=== PATIENT | male | born 1965 | race African-American/Black ===

== ENCOUNTER 2016-12-11 13:26 | Observation (INO) | payer SELFPAY ==
[~2016-12-11] VITALS: Ht 172.7 cm; Wt 120.0 kg
[~2016-12-11 13:26] MED LIST: LISI-363 PO; PRED20 PO
[2016-12-11 13:28] VITALS: BP 175/103; PULSE 85; RESP 16; TEMP 98.3; O2SAT 95
--- NOTE | 2016-12-11 16:19 | PD ---
HPI Chief Complaint: Dizziness Time Seen by Provider: 16:18 Travel History International Travel<30 days: No Contact w/Intl Traveler<30days: No Traveled to known affect area: No History of Present Illness HPI 51-year-old male came to the emergency room with history of lightheadedness today at around 1 PM when he was driving to work. Patient says he had his air conditioner on and the car but felt lightheaded followed by some sweating and right upper extremity pain. He felt like he was going to have a fever. Patient has had vertigo in the past but what he experienced today was different than his previous vertigo symptoms. Sent him and he came to the emergency room. He says as he was sitting in the waiting room his symptoms disappeared. He ate some breakfast in the morning but did not eat any lunch. Since he was getting ready to go to work. No history of vomiting or diarrhea. Patient has obesity and has history of hypertension. PFSH Past Medical History Narrative Medical List of his past medical, surgical, social and family history was reviewed from the nursing note. Arthritis: No Asthma: No Autoimmune Disease: No Blood Disorders: No Depression: No Heart Rhythm Problems: No Cancer: No Cardiovascular Problems: Yes (HTN) High Cholesterol: No Chemotherapy: No Chest Pain: Yes Congestive Heart Failure: No COPD: No Cerebrovascular Accident: No Diminished Hearing: No Endocrine: No GERD: No Glaucoma: No Genitourinary: No Headaches: No Hepatitis: No Hiatal Hernia: No Hypertension: Yes Immune Disorder: No Kidney Stones: No Musculoskeletal: No Psychiatric: No Respiratory: Yes Myocardial Infarction: No Pneumonia: Yes Radiation Therapy: No Renal Failure: No Seizures: No Sickle Cell Disease: No Sleep Apnea: No Thyroid Disease: No Ulcer: No Past Surgical History Abdominal Surgery: No AICD: No Cardiac Surgery: No Ear Surgery: No Endocrine Surgery: No Eye Surgery: No Genitourinary Surgery: No Gynecologic Surgery: No Joint Replacement: No Neurologic Surgery: No Oral Surgery: No Pacemaker: No Thoracic Surgery: No Other Surgery: No Social History Alcohol Use: Yes (social) Tobacco Use: No Substance Use: Yes (MARIJUANA) Allergies-Medications (Allergen,Severity, Reaction): Coded Allergies: No Known Allergies (Verified , 01/19/16) Comments List of his allergies reviewed from the nursing note Reported Meds & Prescriptions Reported Meds & Active Scripts Active Reported Lisinopril 20 Mg Tab 20 Mg PO DAILY Narrative Medication List of his home medications reviewed from the nursing note. Review of Systems Except as stated in HPI: all other systems reviewed are Neg Physical Exam Narrative GENERAL: Awake, alert, obese, no obvious distress SKIN: Focused skin assessment warm/dry. HEAD: Atraumatic. Normocephalic. EYES: Pupils equal and round. No scleral icterus. No injection or drainage. 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 Mucous membranes pink and moist. NECK: Trachea midline. No JVD. CARDIOVASCULAR: Regular rate and rhythm. No murmur appreciated. RESPIRATORY: No accessory muscle use. Clear to auscultation. Breath sounds equal bilaterally. GASTROINTESTINAL: Abdomen soft, non-tender, nondistended. Hepatic and splenic margins not palpable. MUSCULOSKELETAL: No obvious deformities. No clubbing. No cyanosis. No edema. NEUROLOGICAL: Awake and alert. No obvious cranial nerve deficits. Motor grossly within normal limits. Normal speech. PSYCHIATRIC: Appropriate mood and affect; insight and judgment normal. Data Data Last Documented VS Vital Signs Date Time Temp Pulse Resp B/P Pulse Ox O2 Delivery O2 Flow Rate FiO2 12/11/16 16:47 100 Room Air 12/11/16 16:35 59 145/88 61 153/92 66 157/92 12/11/16 13:28 98.3 16 Orders Electrocardiogram (12/11/16 16:26) Complete Blood Count With Diff (12/11/16 16:26) Basic Metabolic Panel (Bmp) (12/11/16 16:26) Troponin I (12/11/16 16:26) Ct Brain W/O Iv Contrast(Rout) (12/11/16 16:26) Ecg Monitoring (12/11/16 16:26) Iv Access Insert/Monitor (12/11/16 16:26) Oximetry (12/11/16 16:26) Sodium Chloride 0.9% Flush (Ns Flush) (12/11/16 16:30) Orthostatic Vital Signs (12/11/16 16:26) Admit Order (Ed Use Only) (12/11/16 20:19) Labs Laboratory Tests Test 12/11/16 12/11/16 17:30 18:50 White Blood Count 8.8 TH/MM3 Red Blood Count 5.04 MIL/MM3 Hemoglobin 14.0 GM/DL Hematocrit 42.2 % Mean Corpuscular Volume 83.6 FL Mean Corpuscular Hemoglobin 27.8 PG Mean Corpuscular Hemoglobin 33.3 % Concent Red Cell Distribution Width 13.5 % Platelet Count 228 TH/MM3 Mean Platelet Volume 7.7 FL Neutrophils (%) (Auto) 64.5 % Lymphocytes (%) (Auto) 25.6 % Monocytes (%) (Auto) 5.4 % Eosinophils (%) (Auto) 2.3 % Basophils (%) (Auto) 2.2 % Neutrophils # (Auto) 5.7 TH/MM3 Lymphocytes # (Auto) 2.3 TH/MM3 Monocytes # (Auto) 0.5 TH/MM3 Eosinophils # (Auto) 0.2 TH/MM3 Basophils # (Auto) 0.2 TH/MM3 CBC Comment DIFF FINAL Differential Comment Sodium Level 136 MEQ/L Potassium Level 5.1 MEQ/L Chloride Level 103 MEQ/L Carbon Dioxide Level 30.3 MEQ/L Anion Gap 3 MEQ/L Blood Urea Nitrogen 13 MG/DL Creatinine 1.03 MG/DL Estimat Glomerular Filtration 92 ML/MIN Rate Random Glucose 80 MG/DL Calcium Level 9.1 MG/DL Troponin I 0.02 NG/ML MDM Medical Decision Making Medical Screen Exam Complete: Yes Emergency Medical Condition: Yes Medical Record Reviewed: Yes Interpretation(s) Twelve-lead EKG was reviewed by me. Normal sinus rhythm, normal axis, nonspecific ST-T wave changes. Heart rate of 62 bpm. Differential Diagnosis TIA, intracranial bleed, intracranial tumor Narrative Course 4:51 PM orthostatic vital signs were done. There were within normal limit. I have ordered cardiac enzyme and blood work and CT head. Given his age and the feet presentation I would like to admit him to the chest pain center regardless. Patient will be signed over to the oncoming ER physician and I let her know about my plan. Procedures EKG Prior to Arrival: No Diagnosis Primary Impression: Dizziness Additional Impressions: Hypertension Qualified Code: I10 - Essential hypertension Paresthesia Chest pain Qualified Code: R07.9 - Chest pain, unspecified type Admitting Information Admitting Physician Requests: Observation Anjel Inman MD Dec 11, 2016 16:19
[2016-12-11] MEDS ORDERED: LISI-515 PO (16:23)
[2016-12-11] MEDS ORDERED: SODIUM CHLORIDE 0.9% FLUSH 10 ML FLUSH IVF PRN (16:30)
[2016-12-11 16:35] VITALS: BP_SYST 145; BP_SYST 153; BP_SYST 157; BP_DIAS 88; BP_DIAS 92
[2016-12-11 16:47] VITALS: O2SAT 100
--- NOTE | 2016-12-11 17:22 | RADRPT ---
EXAM DATE/TIME: 12/11/2016 17:13 [facility] COMPARISON: CT BRAIN W/O CONTRAST, January 08, 2016, 23:39. INDICATIONS : Dizziness. Right sided head pain, elevated blood pressure. RADIATION DOSE: 41.45 CTDIvol (mGy) MEDICAL HISTORY : Hypertension. SURGICAL HISTORY : None. ENCOUNTER: Initial ACUITY: 1 day PAIN SCALE: 3/10 LOCATION: Right cranial TECHNIQUE: Multiple contiguous axial images were obtained of the head. Using automated exposure control and adj ustment of the mA and/or kV according to patient size, radiation dose was kept as low as reasonably a chievable to obtain optimal diagnostic quality images. DICOM format image data is available electro nically for review and comparison. FINDINGS: CEREBRUM: The ventricles are normal for age. No evidence of midline shift, mass lesion, hemorrhage or acute in farction. No extra-axial fluid collections are seen. POSTERIOR FOSSA: The cerebellum and brainstem are intact. The 4th ventricle is midline. The cerebellopontine angle i s unremarkable. EXTRACRANIAL: The visualized portion of the orbits is intact. SKULL: The calvaria is intact. No evidence of skull fracture. CONCLUSION: No acute intracranial abnormality is identified. Bin Quick MD on December 11, 2016 at 17:19 Board Certified Radiologist. This report was verified electronically.
[2016-12-11 18:12] LABS: AUTOMATED NEUTROPHIL # 5.7 TH/MM3 (1.8-7.7); BASOPHIL # 0.2 TH/MM3 (0-0.2); BASOPHIL % 2.2 % (0.0-2.0); EOSINOPHIL # 0.2 TH/MM3 (0-0.4); EOSINOPHIL % 2.3 % (0.0-4.0); HEMATOCRIT 42.2 % (39.0-51.0); HEMO FLAGS DIFF FINAL; LYMPH % 25.6 % (9.0-44.0); LYMPHOCYTE # 2.3 TH/MM3 (1.0-4.8); MEAN CELL VOLUME 83.6 FL (80.0-100.0); MEAN CORPUSCULAR HEMOGLOBIN 27.8 PG (27.0-34.0); MEAN CORPUSCULAR HGB CONC 33.3 % (32.0-36.0); MONO % 5.4 % (0.0-8.0); NEUT % 64.5 % (16.0-70.0); PLATELET COUNT 228 TH/MM3 (150-450); RED BLOOD COUNT 5.04 MIL/MM3 (4.50-5.90); RED CELL DISTRIBUTION WIDTH 13.5 % (11.6-17.2); WHITE BLOOD COUNT 8.8 TH/MM3 (4.0-11.0)
[2016-12-11 19:55] LABS: BICARBONATE 30.3 MEQ/L (21.0-32.0)
[2016-12-11 20:00] LABS: POTASSIUM 5.1 MEQ/L (3.5-5.1)
--- NOTE | 2016-12-11 20:26 | PD ---
Physical Exam Narrative Received sign out from previous team to follow up labs, CT brain and admit to chest pain center. 51yo M with HTN here with c/o episode of nausea, diaphoresis, and right arm pain today. Pt was evaluated initially by previous provider and felt that this may be cardiac related. Labs reviewed, no leukocytosis. Troponin 0.02. CT brain negative. Pt evaluated at bedside and denies any chest pain or sob. Pt currently does not have any right arm pain. EKG: NSR 63bpm. No signs of ischemia. Pt states this has never happen before. Does not have a cone former. Informed pt of the plan and he agrees with observation in chest pain center. Data Data Last Documented VS Vital Signs Date Time Temp Pulse Resp B/P Pulse Ox O2 Delivery O2 Flow Rate FiO2 12/11/16 16:47 100 Room Air 12/11/16 16:35 59 145/88 61 153/92 66 157/92 12/11/16 13:28 98.3 16 Orders Electrocardiogram (12/11/16 16:26) Complete Blood Count With Diff (12/11/16 16:26) Basic Metabolic Panel (Bmp) (12/11/16 16:26) Troponin I (12/11/16 16:26) Ct Brain W/O Iv Contrast(Rout) (12/11/16 16:26) Ecg Monitoring (12/11/16 16:26) Iv Access Insert/Monitor (12/11/16 16:26) Oximetry (12/11/16 16:26) Sodium Chloride 0.9% Flush (Ns Flush) (12/11/16 16:30) Orthostatic Vital Signs (12/11/16 16:26) Admit Order (Ed Use Only) (12/11/16 20:19) Labs Laboratory Tests Test 12/11/16 12/11/16 17:30 18:50 White Blood Count 8.8 TH/MM3 Red Blood Count 5.04 MIL/MM3 Hemoglobin 14.0 GM/DL Hematocrit 42.2 % Mean Corpuscular Volume 83.6 FL Mean Corpuscular Hemoglobin 27.8 PG Mean Corpuscular Hemoglobin 33.3 % Concent Red Cell Distribution Width 13.5 % Platelet Count 228 TH/MM3 Mean Platelet Volume 7.7 FL Neutrophils (%) (Auto) 64.5 % Lymphocytes (%) (Auto) 25.6 % Monocytes (%) (Auto) 5.4 % Eosinophils (%) (Auto) 2.3 % Basophils (%) (Auto) 2.2 % Neutrophils # (Auto) 5.7 TH/MM3 Lymphocytes # (Auto) 2.3 TH/MM3 Monocytes # (Auto) 0.5 TH/MM3 Eosinophils # (Auto) 0.2 TH/MM3 Basophils # (Auto) 0.2 TH/MM3 CBC Comment DIFF FINAL Differential Comment Sodium Level 136 MEQ/L Potassium Level 5.1 MEQ/L Chloride Level 103 MEQ/L Carbon Dioxide Level 30.3 MEQ/L Anion Gap 3 MEQ/L Blood Urea Nitrogen 13 MG/DL Creatinine 1.03 MG/DL Estimat Glomerular Filtration 92 ML/MIN Rate Random Glucose 80 MG/DL Calcium Level 9.1 MG/DL Troponin I 0.02 NG/ML MDM Supervised Visit with VEE: No Diagnosis Primary Impression: Dizziness Admitting Information Admitting Physician Requests: Observation Zenaida Avila DO Dec 11, 2016 20:26
[2016-12-11] MEDS ORDERED: SODIUM CHLORIDE 0.9% FLUSH 10 ML FLUSH IV FLUSH PRN (21:15)
[2016-12-11 21:52] VITALS: BP 153/78; PULSE 62; RESP 16; O2SAT 98
[2016-12-11 22:25] VITALS: BP_SYST 160; BP_SYST 168; BP_DIAS 94; BP_DIAS 97; PULSE 60; RESP 18; TEMP 98.8; O2SAT 100
[2016-12-11 23:12] LABS: CREATINE KINASE 167 U/L (39-308)
[2016-12-11 23:24] LABS: CKMB 1.5 NG/ML (0.5-3.6)
[2016-12-12] VITALS (8 sets, daily range): BP systolic 114–146; BP diastolic 79–96; PULSE 60–76; RESP 18; TEMP 97.9–98.5; O2SAT 100
[2016-12-12 01:37] LABS: CREATINE KINASE 110 U/L (39-308)
[2016-12-12 01:49] LABS: CKMB 1.2 NG/ML (0.5-3.6)
--- NOTE | 2016-12-12 08:39 | HHI.HP ---
HPI Primary Care Physician No Primary Care Physician Chief Complaint Mr. Booth is a 51-year-old male patient with a known medical history of hypertension, vertigo and chronic back pain who came into the ED with complaints of right upper arm numbness and pain with associated dizziness and diaphoresis while driving to work. Patient states he has never experienced this type of pain in his arm, started suddenly, intermittent and characteristically sharp in nature, and a 5/10 on pain scale. Denies any alleviating or aggravating factors. Denies any associated chest or neck pain. Does state he has bouts of vertigo intermittently but yesterday he states along with his usual vertigo he became extremely diaphoretic despite using the air conditioner in his car. At this time all symptoms and pain are relived. Denies any recent illness, including fever, chills, cough, shortness of breath, abdominal pain, nausea, vomiting, diarrhea or dysuria. Patient does not have a PCP but visits walk in clinics a couple times a year. States he checks his BP periodically at [facility] and has been controlled. Past Family Social History Allergies: Coded Allergies: No Known Allergies (Verified , 01/19/16) Past Medical History Hypertension Vertigo Chronic back pain Past Surgical History Denies any past surgeries. Reported Medications Reported Meds & Active Scripts Active Reported Lisinopril 20 Mg Tab 20 Mg PO DAILY Active Ordered Medications Current Medications Medications (Trade) Dose Ordered Sig/Jes Route Start Time Stop Time Status Last Admin (NS Flush) 2 ml UNSCH PRN IVF 12/11/16 16:30 (NS Flush) 2 ml UNSCH PRN IV FLUSH 12/11/16 21:15 (NS Flush) 2 ml BID IV FLUSH 12/12/16 09:00 Family History Maternal family medical history includes diabetes. Patient unaware of paternal medical history. Social History Patient denies any past or present tobacco use. Admits to occasional alcohol consumption. Does admit to every other day marijuana use. Physical Exam Vital Signs Vital Signs Date Time Temp Pulse Resp B/P Pulse Ox O2 Delivery O2 Flow Rate FiO2 12/12/16 07:48 98.0 76 18 123/79 100 12/12/16 05:17 60 12/12/16 03:28 97.9 61 18 135/96 100 12/12/16 00:44 98.1 65 18 146/86 100 12/12/16 00:00 65 12/11/16 22:25 98.8 60 18 168/97 100 160/94 12/11/16 21:52 62 16 153/78 98 Room Air 12/11/16 16:47 100 Room Air 12/11/16 16:35 59 145/88 61 153/92 66 157/92 12/11/16 13:28 98.3 85 16 175/103 95 Physical Exam GENERAL: Well-developed male patient, lying in bed in no apparent distress. SKIN: Warm and dry. HEAD: Atraumatic. Normocephalic. EYES: Pupils equal and round. No scleral icterus. No injection or drainage. ENT: No nasal bleeding or discharge. Mucous membranes pink and moist. NECK: Trachea midline. No JVD. CARDIOVASCULAR: Regular rate and rhythm. No murmur appreciated. RESPIRATORY: No accessory muscle use. Clear to auscultation. Breath sounds equal bilaterally. GASTROINTESTINAL: Abdomen soft, non-tender, nondistended. Hepatic and splenic margins not palpable. MUSCULOSKELETAL: Extremities without clubbing, cyanosis, or edema. No obvious deformities. NEUROLOGICAL: Awake and alert. No obvious cranial nerve deficits. Motor grossly within normal limits. Five out of 5 muscle strength in the arms and legs. Normal speech. PSYCHIATRIC: Appropriate mood and affect; insight and judgment normal. Laboratory Laboratory Tests Test 12/11/16 12/11/16 12/11/16 12/12/16 17:30 18:50 21:50 00:12 White Blood Count 8.8 Red Blood Count 5.04 Hemoglobin 14.0 Hematocrit 42.2 Mean Corpuscular Volume 83.6 Mean Corpuscular Hemoglobin 27.8 Mean Corpuscular Hemoglobin 33.3 Concent Red Cell Distribution Width 13.5 Platelet Count 228 Mean Platelet Volume 7.7 Neutrophils (%) (Auto) 64.5 Lymphocytes (%) (Auto) 25.6 Monocytes (%) (Auto) 5.4 Eosinophils (%) (Auto) 2.3 Basophils (%) (Auto) 2.2 Neutrophils # (Auto) 5.7 Lymphocytes # (Auto) 2.3 Monocytes # (Auto) 0.5 Eosinophils # (Auto) 0.2 Basophils # (Auto) 0.2 CBC Comment DIFF FINAL Differential Comment Sodium Level 136 Potassium Level 5.1 Chloride Level 103 Carbon Dioxide Level 30.3 Anion Gap 3 Blood Urea Nitrogen 13 Creatinine 1.03 Estimat Glomerular Filtration 92 Rate Random Glucose 80 Calcium Level 9.1 Troponin I 0.02 0.02 0.03 Total Creatine Kinase 167 110 Creatine Kinase MB 1.5 1.2 Result Diagram: 12/11/16 1730 12/11/16 1850 Imaging Last [address] 12/11/16 1626 Signed Impressions: Service Date/Time: Sunday, December 11, 2016 17:13 - CONCLUSION: No acute intracranial abnormality is identified. Bin Quick MD Assessment and Plan Assessment and Plan Mr. Booth is a 51-year-old male patient with a known medical history of hypertension, vertigo and chronic back pain who came into the ED with complaints of right upper arm numbness and pain with associated dizziness and diaphoresis while driving to work. Patient states he has never experienced this type of pain in his arm, started suddenly, intermittent and characteristically sharp in nature, and a 5/10 on pain scale. Denies any alleviating or aggravating factors. Denies any associated chest or neck pain. Does state he has bouts of vertigo intermittently but yesterday he states along with his usual vertigo he became extremely diaphoretic despite using the air conditioner in his car. * Paresthesias right arm: Patient was admitted to chest pain center to evaluate possible cardiac etiology. He'll be seen by Dr. Campo of cardiology in the chest pain center and likely undergo a Bob protocol ETT and be discharged stress test is nonischemic. He should follow-up with primary care physician. - Serial troponins normal. CKMB normal. - EKG reviewed by nd, showing sinus rhythm with no abnormality or athymias. - Continue tele monitor. Hypertension: Continue at home Lisinopril. On presentation patient was hypertensive, currently controlled, 123/79. Vertigo, chronic: CT head reviewed, no acute intracranial abnormality noted. BMP reviewed, unremarkable. Denies current dizziness. Monitor. Jean Hardy Dec 12, 2016 08:39
[2016-12-12] MEDS ORDERED: SODIUM CHLORIDE 0.9% FLUSH 10 ML FLUSH IV FLUSH SCH (09:00)
[2016-12-12] MEDS ORDERED: LISINOPRIL 20 MG TAB PO SCH (09:30)
--- NOTE | 2016-12-12 12:18 | TR ---
Date Performed: 12/12/2016 Time Performed: 09:55:42 DOCTOR: Mau Campo DRUG LIST: CLINICAL HISTORY: REASON FOR TEST: Chest pain REASON FOR ENDING: OBSERVATION: CONCLUSION: DENISHA PROTOCOL. NO CP. TEST STOPPED AFTER EXCEEDING GOAL HR SECONDARY TO SOB AND LE G FATIGUE.Maximum LQ=206 % Max HR Achieved=92.0% Maximum PZ=352/82 Total Exercise Time=4:31 COMMENTS: Conclusion: Normal treadmill exercise. No evidence of ischemia.
--- NOTE | 2016-12-12 12:33 | HHI.DCPOC ---
Discharge Care Plan Diagnosis: (1) Paresthesia (2) Hypertension Goals to Promote Your Health * To prevent worsening of your condition and complications * To maintain your health at the optimal level Directions to Meet Your Goals Take your medications as prescribed Follow your dietary instruction Follow activity as directed Keep your appointments as scheduled Take your immunizations and boosters as scheduled If your symptoms worsen call your PCP, if no PCP go to Urgent Care Center or Emergency Room Smoking is Dangerous to Your Health. Avoid second hand smoke Call the 24-hour hour crisis hotline for domestic abuse at Jean Hardy Dec 12, 2016 12:32
[2016-12-12 13:53] LABS: BICARBONATE 26.2 MEQ/L (21.0-32.0); POTASSIUM 4.3 MEQ/L (3.5-5.1)
--- NOTE | 2016-12-12 15:13 | EKG ---
Date Performed: 12/12/2016 Time Performed: 00:48:18 PTAGE: 51 years EKG: Sinus rhythm NORMAL ECG PREVIOUS TRACING : 12/11/2016 16.33 Since previous tracing, no significant change noted DOCTOR: Mau Campo Interpretating Date/Time 12/12/2016 15:12:42
--- NOTE | 2016-12-12 15:25 | EKG ---
Date Performed: 12/11/2016 Time Performed: 21:47:34 PTAGE: 51 years EKG: Sinus rhythm NORMAL ECG NO PREVIOUS TRACING DOCTOR: Mau Campo Interpretating Date/Time 12/12/2016 15:23:56
--- NOTE | 2016-12-12 15:27 | EKG ---
Date Performed: 12/11/2016 Time Performed: 16:33:20 PTAGE: 51 years EKG: Sinus rhythm WITH SINUS ARRHYTHMIA NORMAL ECG PREVIOUS TRACING : 01/19/2016 19.58 Since previous tracing, no significant change noted DOCTOR: Mau Campo Interpretating Date/Time 12/12/2016 15:26:17
== END 2016-12-12 14:35 | disposition home or self-care (01) ==
LOC: NEPD 13:26 → NEDA 20:20 → NEPGCP 22:18
PROVIDERS: ADMIT Internal Medicine Cardiovascular Disease; ATTEND Internal Medicine Cardiovascular Disease
DX: R20.9 Unspecified disturbances of skin sensation (principal); R42 Dizziness and giddiness; I10 Essential (primary) hypertension; R61 Generalized hyperhidrosis; E66.9 Obesity, unspecified; Z68.41 Body mass index [BMI] 40.0-44.9, adult; Z79.899 Other long term (current) drug therapy
CPT/HCPCS: 70450; 80048; 82550; 82552; 84484; 85025; 93005; 93017; 99285; G0378

== ENCOUNTER 2016-12-20 13:34 | Emergency (ER) | payer SELFPAY ==
[~2016-12-20] VITALS: Ht 165.1 cm; Wt 106.0 kg
[~2016-12-20 13:34] MED LIST changes: -LISI-363 PO; +LISI-515 PO; -PRED20 PO
[2016-12-20 13:36] VITALS: BP 179/89; PULSE 80; RESP 20; TEMP 97.3; O2SAT 100
[2016-12-20] MEDS ORDERED: LISI40TA PO (14:44)
--- NOTE | 2016-12-20 14:45 | PD ---
HPI Chief Complaint: Musculoskeletal Complaint Time Seen by Provider: 14:39 Travel History International Travel<30 days: No Contact w/Intl Traveler<30days: No Traveled to known affect area: No History of Present Illness HPI Pleasant 51-year-old male here with complaint of spasm. Patient states that he was at home when he had a sudden onset of a muscle spasm in the volar aspect of his right forearm. This lasted for approximately 15 minutes, crampy discomfort. Patient states that it made his fingers "curl up" in the right hand. Patient states that he was recently hospitalized for cardiac rule out, per chart review workup was negative. Patient was hypertensive and is on lisinopril. Has been checking his blood pressure at home and states that despite taking lisinopril 28 is still intermittently elevated. He will occasionally have some blurry vision, patient is concerned this may be due to his high blood pressure. Asymptomatic At this time. PFSH Past Medical History Arthritis: No Asthma: No Autoimmune Disease: No Blood Disorders: No Depression: No Heart Rhythm Problems: No Cancer: No Cardiac Catheterization: No Cardiovascular Problems: Yes High Cholesterol: No Chemotherapy: No Chest Pain: Yes Congestive Heart Failure: No COPD: No Cerebrovascular Accident: No Diabetes: No Diminished Hearing: No Endocrine: No GERD: No Glaucoma: No Genitourinary: No Headaches: No Hepatitis: No Hiatal Hernia: No Hypertension: Yes Immune Disorder: No Kidney Stones: No Musculoskeletal: No Psychiatric: No Respiratory: Yes Myocardial Infarction: No Pneumonia: Yes Radiation Therapy: No Renal Failure: No Seizures: No Sickle Cell Disease: No Sleep Apnea: No Thyroid Disease: No Ulcer: No Past Surgical History Abdominal Surgery: No AICD: No Cardiac Surgery: No Coronary Artery Bypass Graft: No Ear Surgery: No Endocrine Surgery: No Eye Surgery: No Genitourinary Surgery: No Gynecologic Surgery: No Joint Replacement: No Neurologic Surgery: No Oral Surgery: No Pacemaker: No Thoracic Surgery: No Other Surgery: No Social History Alcohol Use: Yes (social) Tobacco Use: No Substance Use: Yes (MARIJUANA) Allergies-Medications (Allergen,Severity, Reaction): Coded Allergies: No Known Allergies (Verified , 01/19/16) Reported Meds & Prescriptions Reported Meds & Active Scripts Active Lisinopril 40 Mg Tab 40 Mg PO DAILY Reported Lisinopril 20 Mg Tab 20 Mg PO DAILY Review of Systems Except as stated in HPI: all other systems reviewed are Neg Physical Exam Narrative GENERAL: Well-appearing male in no acute distress SKIN: Focused skin assessment warm/dry. HEAD: Normocephalic. EYES: No scleral icterus. No injection or drainage. ENT: Mucous membranes pink and moist. NECK: Supple CARDIOVASCULAR: Regular rate and rhythm. Hypertensive. No murmur appreciated. RESPIRATORY: No accessory muscle use. Clear to auscultation. Breath sounds equal bilaterally. GASTROINTESTINAL: Obese MUSCULOSKELETAL: No edema. 5 out of 5 strength in the bilateral upper and lower extremities. No palpable spasm, deformities. Good distal sensation and pulses. NEUROLOGICAL: Awake and alert. Motor grossly within normal limits. Normal speech. PSYCHIATRIC: Appropriate mood and affect; insight and judgment normal. Data Data Last Documented VS Vital Signs Date Time Temp Pulse Resp B/P Pulse Ox O2 Delivery O2 Flow Rate FiO2 12/20/16 13:36 97.3 80 20 179/89 100 Room Air MDM Medical Decision Making Medical Screen Exam Complete: Yes Emergency Medical Condition: Yes Medical Record Reviewed: Yes Differential Diagnosis 51-year-old male here with complaint of muscle spasm. By history patient had a fairly classic focalized spasm of the muscles of the volar aspect of the right forearm. This has since resolved. No history to be concern for dehydration or electrolyte abnormality. Electrolytes obtained 8 days ago were normal. Godinez is hypertensive asymptomatic at this time. Narrative Course With regard to muscle spasm patient was reassured. We will increase his home lisinopril from 20-40 mg daily. Diagnosis Primary Impression: Muscle spasm Additional Impression: Hypertension Qualified Code: I10 - Essential hypertension Referrals: Primary Care Physician 2 weeks Additional Instructions: Increase lisinopril from 20-40 mg daily. Follow-up with primary care provider in 2 weeks as scheduled for blood pressure check. Med/Other Pt SpecificInfo: Prescription(s) given, Existing Med Changed Scripts Lisinopril 40 Mg Tab40 Mg PO DAILY #30 TAB Ref 0 Prov:Emelia Cortez MD 12/20/16 Disposition: 01 DISCHARGE HOME Condition: Stable Emelia Cortez MD Dec 20, 2016 14:45
[2016-12-20 14:48] VITALS: BP 175/100
== END 2016-12-20 14:59 | disposition home or self-care (01) ==
LOC: NEPD 13:34
DX: M62.838 Other muscle spasm (principal); I10 Essential (primary) hypertension; Z79.899 Other long term (current) drug therapy
CPT/HCPCS: 99283

== ENCOUNTER 2017-02-10 14:49 | Emergency (ER) | payer SELFPAY ==
[~2017-02-10 14:49] MED LIST changes: +LISI40TA PO
[2017-02-10 14:51] VITALS: BP 182/103; PULSE 72; RESP 20; TEMP 98.1; O2SAT 100
--- NOTE | 2017-02-10 15:00 | PD ---
Physical Exam Date Seen by Provider: Feb 10, 2017 Time Seen by Provider: 14:58 Narrative 51-year-old white male presents to emergency department with a complaint of dizziness, headache feeling as if he might pass out today. Vital signs reviewed. Awaiting bed placement. Data Data Last Documented VS Vital Signs Date Time Temp Pulse Resp B/P (MAP) Pulse Ox O2 Delivery O2 Flow Rate FiO2 02/10/17 14:51 98.1 72 20 182/103 (129) 100 Room Air [facility] Medical Record Reviewed: No Supervised Visit with VEE: Lev Gonzalez Feb 10, 2017 15:00
[2017-02-10 15:27] VITALS: BP 146/83; PULSE 65; RESP 16; O2SAT 99
[2017-02-10] MEDS ORDERED: MECLIZINE HCL 25 MG TAB PO ONE (15:30)
[2017-02-10] MEDS ORDERED: SODIUM CHLORIDE 0.9% FLUSH 10 ML FLUSH IVF PRN (15:30)
--- NOTE | 2017-02-10 15:55 | PD ---
Data Data Last Documented VS Vital Signs Date Time Temp Pulse Resp B/P (MAP) Pulse Ox O2 Delivery O2 Flow Rate FiO2 02/10/17 15:27 Room Air 02/10/17 15:27 65 16 146/83 (104) 99 02/10/17 14:51 98.1 Orders Orders Electrocardiogram (02/10/17 15:00) Complete Blood Count With Diff (02/10/17 15:22) Comprehensive Metabolic Panel (02/10/17:22) Ckmb (Isoenzyme) Profile (02/10/17:) Troponin I (02/10/17:) Ecg Monitoring (02/10/17:22) Iv Access Insert/Monitor (02/10/17:) Oximetry (02/10/17:) Meclizine (Antivert) (02/10/17 15:30) Sodium Chloride 0.9% Flush (Ns Flush) (02/10/17 15:30) Labs Laboratory Tests Test 02/10/17 15:40 MDM Supervised Visit with VEE: Yes Narrative Course The history, exam, and medical decision-making in the associated midlevel provider note were completed with my assistance. I reviewed and agree with the findings presented. I attest that I had a [id number] encounter with the patient on the same day, and personally performed and documented my assessment and findings in the medical record. *My assessment and Findings: This is a 51-year-old male who has a history of dizziness and vertigo who presents to the emergency department with some sensation of the room spinning this morning, intermittent, and having checked his blood pressure at home and it was high in the 160s. He just ran out of his lisinopril. He has a follow-up with a primary care doctor later this month. He has normal gross neurologic exam. I suspect the reason he is here is because he wants a refill on his lisinopril. This will be provided and patient was given meclizine and will be discharged home. I don't think he requires any further diagnostics as he's been seen here for similar symptoms in the past. Carrie Cervantes MD Feb 10, 2017 15:55
--- NOTE | 2017-02-10 15:57 | PD ---
HPI Chief Complaint: Dizziness Time Seen by Provider: 15:11 Travel History International Travel<30 days: No Contact w/Intl Traveler<30days: No Traveled to known affect area: No History of Present Illness HPI Patient is a 51-year-old male presenting to the emergency department due to dizziness and headache. Patient face that headache and dizziness started last night, it resolved itself. He woke up this morning again with dizziness which was worse with head movement. He denies chest pain, shortness of breath. He reports similar headache in the past. Patient has a history of hypertension, he feels that when his blood pressure is elevated he is dizzy. He has no other complaints at this time. PFSH Past Medical History Arthritis: No Asthma: No Autoimmune Disease: No Blood Disorders: No Depression: No Heart Rhythm Problems: No Cancer: No Cardiac Catheterization: No Cardiovascular Problems: Yes High Cholesterol: No Chemotherapy: No Chest Pain: Yes Congestive Heart Failure: No COPD: No Cerebrovascular Accident: No Diabetes: No Diminished Hearing: No Endocrine: No GERD: No Glaucoma: No Genitourinary: No Headaches: No Hepatitis: No Hiatal Hernia: No Hypertension: Yes Immune Disorder: No Kidney Stones: No Musculoskeletal: No Psychiatric: No Respiratory: Yes Immunizations Current: Yes Myocardial Infarction: No Pneumonia: Yes Radiation Therapy: No Renal Failure: No Seizures: No Sickle Cell Disease: No Sleep Apnea: No Thyroid Disease: No Ulcer: No Past Surgical History Surgical History: No Previous Surgery Abdominal Surgery: No AICD: No Cardiac Surgery: No Coronary Artery Bypass Graft: No Ear Surgery: No Endocrine Surgery: No Eye Surgery: No Genitourinary Surgery: No Gynecologic Surgery: No Joint Replacement: No Neurologic Surgery: No Oral Surgery: No Pacemaker: No Thoracic Surgery: No Other Surgery: No Social History Alcohol Use: Yes (social) Tobacco Use: No Substance Use: Yes (MARIJUANA) Allergies-Medications (Allergen,Severity, Reaction): Coded Allergies: No Known Allergies (Verified , 02/10/17) Reported Meds & Prescriptions Reported Meds & Active Scripts Active Lisinopril 40 Mg Tab 40 Mg PO DAILY Meclizine (Meclizine HCl) 25 Mg Tab 25 Mg PO TID PRN Lisinopril 40 Mg Tab 40 Mg PO DAILY Review of Systems Except as stated in HPI: all other systems reviewed are Neg General / Constitutional: No: Fever Eyes: No: Blurred Vision HENT: Positive: Headaches Cardiovascular: No: Chest Pain or Discomfort Respiratory: No: Shortness of Breath Gastrointestinal: No: Nausea, Abdominal Pain Musculoskeletal: No: Myalgias Neurologic: Positive: Dizziness Physical Exam Narrative GENERAL: Overweight, well-developed, alert male. Resting comfortably in no acute distress. SKIN: Warm and dry. HEAD: Atraumatic. Normocephalic. EYES: Pupils equal and round. No scleral icterus. No injection or drainage. Right eye exotropia ENT: No nasal bleeding or discharge. Mucous membranes pink and moist. NECK: Trachea midline. No JVD. CARDIOVASCULAR: Regular rate and rhythm. RESPIRATORY: No accessory muscle use. Clear to auscultation. Breath sounds equal bilaterally. GASTROINTESTINAL: Abdomen soft, non-tender, nondistended. Hepatic and splenic margins not palpable. MUSCULOSKELETAL: Extremities without clubbing, cyanosis, or edema. No obvious deformities. NEUROLOGICAL: Awake and alert. No obvious cranial nerve deficits. Motor grossly within normal limits. Five out of 5 muscle strength in the arms and legs. Normal speech. PSYCHIATRIC: Appropriate mood and affect; insight and judgment normal. Data Data Last Documented VS Vital Signs Date Time Temp Pulse Resp B/P (MAP) Pulse Ox O2 Delivery O2 Flow Rate FiO2 02/10/17 16:55 62 16 138/78 (98) 99 02/10/17 15:27 Room Air 02/10/17 14:51 98.1 Orders Orders Electrocardiogram (02/10/17 15:00) Complete Blood Count With Diff (02/10/17 15:22) Comprehensive Metabolic Panel (02/10/17 15:22) Ckmb (Isoenzyme) Profile (02/10/17 15:22) Troponin I (02/10/17 15:22) Ecg Monitoring (02/10/17 15:22) Iv Access Insert/Monitor (02/10/17 15:22) Oximetry (02/10/17 15:22) Meclizine (Antivert) (02/10/17 15:30) Sodium Chloride 0.9% Flush (Ns Flush) (02/10/17 15:30) CKMB (02/10/17 15:40) CKMB% (02/10/17 15:40) Labs Laboratory Tests Test 02/10/17 15:40 White Blood Count 6.7 TH/MM3 Red Blood Count 4.72 MIL/MM3 Hemoglobin 13.0 GM/DL Hematocrit 39.6 % Mean Corpuscular Volume 84.0 FL Mean Corpuscular Hemoglobin 27.7 PG Mean Corpuscular Hemoglobin Concent 32.9 % Red Cell Distribution Width 13.1 % Platelet Count 246 TH/MM3 Mean Platelet Volume 7.7 FL Neutrophils (%) (Auto) 57.8 % Lymphocytes (%) (Auto) 28.9 % Monocytes (%) (Auto) 7.8 % Eosinophils (%) (Auto) 2.8 % Basophils (%) (Auto) 2.7 % Neutrophils # (Auto) 3.9 TH/MM3 Lymphocytes # (Auto) 1.9 TH/MM3 Monocytes # (Auto) 0.5 TH/MM3 Eosinophils # (Auto) 0.2 TH/MM3 Basophils # (Auto) 0.2 TH/MM3 CBC Comment DIFF FINAL Differential Comment Blood Urea Nitrogen 14 MG/DL Creatinine 1.02 MG/DL Random Glucose 75 MG/DL Total Protein 7.7 GM/DL Albumin 3.8 GM/DL Calcium Level 9.0 MG/DL Alkaline Phosphatase 67 U/L Aspartate Amino Transf (AST/SGOT) 13 U/L Alanine Aminotransferase (ALT/SGPT) 24 U/L Total Bilirubin 0.5 MG/DL Sodium Level 139 MEQ/L Potassium Level 4.2 MEQ/L Chloride Level 108 MEQ/L Carbon Dioxide Level 29.0 MEQ/L Anion Gap 2 MEQ/L Estimat Glomerular Filtration Rate 93 ML/MIN Total Creatine Kinase 189 U/L Creatine Kinase MB 2.1 NG/ML Troponin I 0.02 NG/ML MDM Medical Decision Making Medical Screen Exam Complete: Yes Emergency Medical Condition: Yes Medical Record Reviewed: Yes Interpretation(s) Laboratory Tests Test 02/10/17 15:40 White Blood Count 6.7 TH/MM3 Red Blood Count 4.72 MIL/MM3 Hemoglobin 13.0 GM/DL Hematocrit 39.6 % Mean Corpuscular Volume 84.0 FL Mean Corpuscular Hemoglobin 27.7 PG Mean Corpuscular Hemoglobin Concent 32.9 % Red Cell Distribution Width 13.1 % Platelet Count 246 TH/MM3 Mean Platelet Volume 7.7 FL Neutrophils (%) (Auto) 57.8 % Lymphocytes (%) (Auto) 28.9 % Monocytes (%) (Auto) 7.8 % Eosinophils (%) (Auto) 2.8 % Basophils (%) (Auto) 2.7 % Neutrophils # (Auto) 3.9 TH/MM3 Lymphocytes # (Auto) 1.9 TH/MM3 Monocytes # (Auto) 0.5 TH/MM3 Eosinophils # (Auto) 0.2 TH/MM3 Basophils # (Auto) 0.2 TH/MM3 CBC Comment DIFF FINAL Differential Comment Blood Urea Nitrogen 14 MG/DL Creatinine 1.02 MG/DL Random Glucose 75 MG/DL Total Protein 7.7 GM/DL Albumin 3.8 GM/DL Calcium Level 9.0 MG/DL Alkaline Phosphatase 67 U/L Aspartate Amino Transf (AST/SGOT) 13 U/L Alanine Aminotransferase (ALT/SGPT) 24 U/L Total Bilirubin 0.5 MG/DL Sodium Level 139 MEQ/L Potassium Level 4.2 MEQ/L Chloride Level 108 MEQ/L Carbon Dioxide Level 29.0 MEQ/L Anion Gap 2 MEQ/L Estimat Glomerular Filtration Rate 93 ML/MIN Total Creatine Kinase 189 U/L Creatine Kinase MB 2.1 NG/ML Troponin I 0.02 NG/ML Vital Signs Date Time Temp Pulse Resp B/P (MAP) Pulse Ox O2 Delivery O2 Flow Rate FiO2 02/10/17 15:27 Room Air 02/10/17 15:27 65 16 146/83 (104) 99 Room Air 02/10/17 15:27 99 Room Air 02/10/17 14:51 98.1 72 20 182/103 (129) 100 Room Air Differential Diagnosis Hypertensive urgency versus vertigo versus migraine versus other Narrative Course Patient's 52-year-old male that presented to emergency evaluation of dizziness, headache, elevated blood pressure reading. Patient attributed the headache and dizziness to an elevated blood pressure reading however he stated that the dizziness occurred first and then he checked his blood pressure which he felt was elevated. Blood pressure was mildly elevated on arrival but did normalize as he was brought back to the room. He had no complaints of chest pain, radiating pain, photophobia, nausea. Admission is unremarkable. Patient was admitted one year ago due to hypertensive urgency with dizziness as well. We' ll check cardiac enzymes, EKG and labs. Attending physician who was in agreement with plan. At this time additional diagnostic testing does not seem necessary as patient had a negative CT of the brain in November of this year, and the headache he is presenting with is similar to what he's had in the past. Additionally he is requesting a refill of his blood pressure medications. CBC, chemistry reviewed, no acute abnormalities identified Cardiac enzymes are negative 1 set. EKG shows normal sinus rhythm and was read by my attending physician. Patient was given meclizine in the emergency department, he reports improvement in his symptoms. He was encouraged to follow up with his primary doctor in 1-2 days, maintain adequate fluid intake, take blood pressure medications at same time every day. He is encouraged to monitor his blood pressure when he is feeling well and record results. He was encouraged to return to emergency department for any new or worsening symptoms. Patient verbalized understanding of these instructions. Patient is stable for discharge. Diagnosis Primary Impression: Dizziness Additional Impression: Hypertension Qualified Codes: I10 - Essential (primary) hypertension Referrals: Primary Care Physician 2 days Patient Instructions: Dizziness (ED), General Instructions, Hypertension (ED) Additional Instructions: Follow-up with your primary doctor Take medications as directed Return to emergency department for any new or worsening symptoms Med/Other Pt SpecificInfo: Prescription(s) given Scripts Lisinopril (Lisinopril) 40 Mg Tab 40 MG PO DAILY for Blood Pressure Management, #30 TAB 0 Refills Prov: Kalyn Walls 02/10/17 Meclizine (Meclizine) 25 Mg Tab 25 MG PO TID Y for VERTIGO, #30 TAB 0 Refills Prov: Kalyn Walls 02/10/17 Disposition: 01 DISCHARGE HOME Condition: Stable Kalyn Walls Feb 10, 2017 15:57
[2017-02-10 15:59] LABS: AUTOMATED NEUTROPHIL # 3.9 TH/MM3 (1.8-7.7); BASOPHIL # 0.2 TH/MM3 (0-0.2); BASOPHIL % 2.7 % (0.0-2.0); EOSINOPHIL # 0.2 TH/MM3 (0-0.4); EOSINOPHIL % 2.8 % (0.0-4.0); HEMATOCRIT 39.6 % (39.0-51.0); HEMO FLAGS DIFF FINAL; LYMPH % 28.9 % (9.0-44.0); LYMPHOCYTE # 1.9 TH/MM3 (1.0-4.8); MEAN CORPUSCULAR HEMOGLOBIN 27.7 PG (27.0-34.0); MEAN CORPUSCULAR HGB CONC 32.9 % (32.0-36.0); MONO % 7.8 % (0.0-8.0); NEUT % 57.8 % (16.0-70.0); PLATELET COUNT 246 TH/MM3 (150-450); RED BLOOD COUNT 4.72 MIL/MM3 (4.50-5.90); RED CELL DISTRIBUTION WIDTH 13.1 % (11.6-17.2); WHITE BLOOD COUNT 6.7 TH/MM3 (4.0-11.0)
[2017-02-10 16:24] LABS: ANION GAP 2 MEQ/L (5-15); AST (GOT) 13 U/L (15-37); BLOOD UREA NITROGEN 14 MG/DL (7-18); CHLORIDE 108 MEQ/L (98-107); GLOMERULAR FILTRATION RATE 93 ML/MIN (>89); POTASSIUM 4.2 MEQ/L (3.5-5.1); SODIUM (NA) 139 MEQ/L (136-145)
[2017-02-10 16:25] LABS: ALT (GPT) 24 U/L (12-78)
[2017-02-10 16:29] LABS: ALKALINE PHOSPHATASE 67 U/L (45-117); CREATINE KINASE 189 U/L (39-308); TOTAL BILIRUBIN ADULT 0.5 MG/DL (0.2-1.0)
[2017-02-10 16:41] LABS: CKMB 2.1 NG/ML (0.5-3.6)
[2017-02-10] MEDS ORDERED: MECL-62 PO (16:49)
[2017-02-10] MEDS ORDERED: LISI40TA PO (16:49)
[2017-02-10 16:55] VITALS: BP 138/78
--- NOTE | 2017-02-10 23:37 | EKG ---
Date Performed: 02/10/2017 Time Performed: 15:06:28 PTAGE: 51 years EKG: Sinus rhythm NORMAL ECG PREVIOUS TRACING : 12/12/2016 00.48 Compared to prior tracing no significant change DOCTOR: Graham Bhat Interpretating Date/Time 02/10/2017 23:36:30
== END 2017-02-10 17:03 | disposition home or self-care (01) ==
LOC: NEPD 14:49
DX: R42 Dizziness and giddiness (principal); I10 Essential (primary) hypertension
CPT/HCPCS: 80053; 82550; 82552; 84484; 85025; 93005; 99284

== ENCOUNTER 2017-07-20 03:40 | Emergency (ER) | payer SELFPAY ==
[~2017-07-20] VITALS: Ht 172.7 cm; Wt 115.0 kg
[~2017-07-20 03:40] MED LIST changes: -LISI-515 PO; +MECL-62 PO
[2017-07-20 03:46] VITALS: BP 179/100; PULSE 82; RESP 18; TEMP 98.7; O2SAT 100
[2017-07-20 05:02] VITALS: BP 171/94; PULSE 74; RESP 20; TEMP 98; O2SAT 98
[2017-07-20] MEDS ORDERED: SODIUM CHLORIDE 0.9% FLUSH 10 ML FLUSH IVF PRN (06:00)
--- NOTE | 2017-07-20 06:08 | PD ---
HPI Chief Complaint: Dizziness Time Seen by Provider: 05:52 Travel History International Travel<30 days: No Contact w/Intl Traveler<30days: No Traveled to known affect area: No History of Present Illness HPI 52-year-old male presents to the emergency department for evaluation of blood pressure. Patient states he has been dizzy for the past several days. Patient notes tonight that he had increased dizziness and had a coworker check his blood pressure and was elevated. Patient has been diagnosed with hypertension and is supposed to take lisinopril but has been out of his medication for several weeks and change in speech or balance disturbance upper or lower extremity numbness tingling or weakness also denies any chest pain palpitations shortness of breath sweats nausea vomiting or referred neck jaw back shoulder arm or abdominal pain. Patient reports overall discomfort upon arrival 5/10 intensity but currently denies any pain. Reportedly at work his blood pressure was over 200 systolic. PFSH Past Medical History Narrative Medical Hypertension pneumonia alcohol use marijuana use; nursing notes reviewed Arthritis: No Asthma: No Autoimmune Disease: No Blood Disorders: No Depression: No Heart Rhythm Problems: No Cancer: No Cardiac Catheterization: No Cardiovascular Problems: Yes (htn) High Cholesterol: No Chemotherapy: No Chest Pain: Yes Congestive Heart Failure: No COPD: No Cerebrovascular Accident: No Diabetes: No Diminished Hearing: No Endocrine: No GERD: No Glaucoma: No Genitourinary: No Headaches: No Hepatitis: No Hiatal Hernia: No Hypertension: Yes Immune Disorder: No Kidney Stones: No Musculoskeletal: No Psychiatric: No Respiratory: Yes Immunizations Current: Yes Myocardial Infarction: No Pneumonia: Yes Radiation Therapy: No Renal Failure: No Seizures: No Sickle Cell Disease: No Sleep Apnea: No Thyroid Disease: No Ulcer: No Tetanus Vaccination: Unknown Influenza Vaccination: No ?: Not Past Surgical History Abdominal Surgery: No AICD: No Cardiac Surgery: No Coronary Artery Bypass Graft: No Ear Surgery: No Endocrine Surgery: No Eye Surgery: No Genitourinary Surgery: No Gynecologic Surgery: No Joint Replacement: No Neurologic Surgery: No Oral Surgery: No Pacemaker: No Thoracic Surgery: No Other Surgery: No Social History Alcohol Use: Yes (social) Tobacco Use: No Substance Use: Yes (MARIJUANA) Allergies-Medications (Allergen,Severity, Reaction): Coded Allergies: No Known Allergies (Verified Adverse Reaction, Unknown, 07/20/17) Reported Meds & Prescriptions Reported Meds & Active Scripts Active Lisinopril 40 Mg Tab 40 Mg PO DAILY Review of Systems Except as stated in HPI: all other systems reviewed are Neg General / Constitutional: No: Fever, Chills Eyes: No: Diploplia, Blurred Vision HENT: Positive: Lightheadedness, No: Headaches, Vertigo Cardiovascular: No: Chest Pain or Discomfort Respiratory: No: Shortness of Breath Gastrointestinal: No: Nausea, Vomiting, Abdominal Pain Genitourinary: No: Flank Pain Musculoskeletal: No: Myalgias, Arthralgias, Edema Skin: No Rash Neurologic: Positive: Dizziness, No: Weakness, Syncope, Focal Abnormalities, Coordination Problem, Ataxia, Headache, Change in Mentation, Slurred Speech, Paresthesia, Sensory Disturbance Psychiatric: No: Anxiety Hematologic/Lymphatic: No: Lymph Node Enlargement Physical Exam Narrative GENERAL: Well-developed well-nourished male no acute distress no respiratory distress; GCS 15 SKIN: Warm and dry. HEAD: Atraumatic. Normocephalic. EYES: Pupils equal and round. No scleral icterus. No injection or drainage. ENT: No nasal bleeding or discharge. Mucous membranes pink and moist. NECK: Trachea midline. No JVD. CARDIOVASCULAR: Regular rate and rhythm. RESPIRATORY: No accessory muscle use. Clear to auscultation. Breath sounds equal bilaterally. GASTROINTESTINAL: Abdomen soft, non-tender, nondistended. Hepatic and splenic margins not palpable. MUSCULOSKELETAL: Extremities without clubbing, cyanosis, or edema. No obvious deformities. NEUROLOGICAL: Awake and alert. No obvious cranial nerve deficits. Motor grossly within normal limits. Five out of 5 muscle strength in the arms and legs. No limb ataxia no pronator drift. Normal speech. PSYCHIATRIC: Appropriate mood and affect; insight and judgment normal. Data Data Last Documented VS Vital Signs Date Time Temp Pulse Resp B/P (MAP) Pulse Ox O2 Delivery O2 Flow Rate FiO2 07/20/17 06:32 98.0 68 20 167/84 (111) 98 Room Air Orders Orders Electrocardiogram (07/20/17 05:52) Basic Metabolic Panel (Bmp) (07/20/17 05:52) Complete Blood Count With Diff (07/20/17 05:52) Magnesium (Mg) (07/20/17 05:52) Troponin I (07/20/17 05:52) Chest, Single Ap (07/20/17 05:52) Ecg Monitoring (07/20/17 05:52) Iv Access Insert/Monitor (07/20/17 05:52) Oximetry (07/20/17 05:52) Sodium Chloride 0.9% Flush (Ns Flush) (07/20/17 06:00) Protein Corrected Calcium(Pcc) (07/20/17 06:00) Basic Metabolic Panel (Bmp) (07/20/17 07:05) Labs Laboratory Tests Test 07/20/17 06:00 White Blood Count 10.3 TH/MM3 Red Blood Count 4.82 MIL/MM3 Hemoglobin 13.4 GM/DL Hematocrit 40.2 % Mean Corpuscular Volume 83.4 FL Mean Corpuscular Hemoglobin 27.9 PG Mean Corpuscular Hemoglobin Concent 33.5 % Red Cell Distribution Width 13.6 % Platelet Count 261 TH/MM3 Mean Platelet Volume 7.7 FL Neutrophils (%) (Auto) 54.1 % Lymphocytes (%) (Auto) 35.2 % Monocytes (%) (Auto) 6.3 % Eosinophils (%) (Auto) 3.3 % Basophils (%) (Auto) 1.1 % Neutrophils # (Auto) 5.6 TH/MM3 Lymphocytes # (Auto) 3.6 TH/MM3 Monocytes # (Auto) 0.7 TH/MM3 Eosinophils # (Auto) 0.3 TH/MM3 Basophils # (Auto) 0.1 TH/MM3 CBC Comment DIFF FINAL Differential Comment Blood Urea Nitrogen 15 MG/DL Creatinine 0.76 MG/DL Random Glucose 65 MG/DL Total Protein 7.0 GM/DL Calcium Level 7.1 MG/DL Magnesium Level 2.5 MG/DL Sodium Level 148 MEQ/L Potassium Level 3.2 MEQ/L Chloride Level 81 MEQ/L Carbon Dioxide Level 16.2 MEQ/L Anion Gap 51 MEQ/L Estimat Glomerular Filtration Rate 130 ML/MIN Protein Corrected Calcium 7.2 MG/DL Troponin I LESS THAN 0.02 NG/ML MDM Medical Decision Making Medical Screen Exam Complete: Yes Emergency Medical Condition: Yes Medical Record Reviewed: Yes Interpretation(s) EKG: Normal sinus rhythm rate [address] elevation injury pattern or ectopy noted nonspecific biphasic T-wave in V2 Differential Diagnosis Dizziness, uncontrolled hypertension, vertigo, arrhythmia, electrolyte disturbance, medication noncompliance Narrative Course Patient placed on lunchroom monitor with continuous pulse oximetry blood pressure 171/94; specimens collected and sent for resulting BMP resulted with markedly abnormal lab values prior to addressing these values will do a stat BMP redraw as such patient was signed out to oncoming physician for follow-up of repeat BMP results and management subsequently patient will need a refill of his blood pressure medication. Care signed over to Dr Nagy Diagnosis Primary Impression: Hypertension Additional Impression: Medication refill Marion Quiles MD Jul 20, 2017 06:08
[2017-07-20 06:11] LABS: AUTOMATED NEUTROPHIL # 5.6 TH/MM3 (1.8-7.7); BASOPHIL # 0.1 TH/MM3 (0-0.2); BASOPHIL % 1.1 % (0.0-2.0); EOSINOPHIL # 0.3 TH/MM3 (0-0.4); EOSINOPHIL % 3.3 % (0.0-4.0); HEMATOCRIT 40.2 % (39.0-51.0); HEMOGLOBIN 13.4 GM/DL (13.0-17.0); LYMPH % 35.2 % (9.0-44.0); LYMPHOCYTE # 3.6 TH/MM3 (1.0-4.8); MEAN CELL VOLUME 83.4 FL (80.0-100.0); MEAN CORPUSCULAR HEMOGLOBIN 27.9 PG (27.0-34.0); MEAN CORPUSCULAR HGB CONC 33.5 % (32.0-36.0); MEAN PLATELET VOLUME 7.7 FL (7.0-11.0); MONO % 6.3 % (0.0-8.0); MONOCYTE # 0.7 TH/MM3 (0-0.9); NEUT % 54.1 % (16.0-70.0); PLATELET COUNT 261 TH/MM3 (150-450); RED BLOOD COUNT 4.82 MIL/MM3 (4.50-5.90); RED CELL DISTRIBUTION WIDTH 13.6 % (11.6-17.2); WHITE BLOOD COUNT 10.3 TH/MM3 (4.0-11.0)
--- NOTE | 2017-07-20 06:19 | RADRPT ---
EXAM DATE/TIME: 07/20/2017 06:13 [facility] COMPARISON: CHEST SINGLE AP, January 19, 2016, 20:05. INDICATIONS : Short of breath and dizziness. MEDICAL HISTORY : Hypertension. SURGICAL HISTORY : None. ENCOUNTER: Initial ACUITY: 1 day PAIN SCORE: 0/10 LOCATION: Bilateral chest FINDINGS: A single view of the chest demonstrates the lungs to be symmetrically aerated without evidence of mas s, infiltrate or effusion. The cardiomediastinal contours are unremarkable. Osseous structures are intact. CONCLUSION: 1. No acute cardiopulmonary disease. [place] Drummond MD on July 20, 2017 at 6:18 Board Certified Radiologist. This report was verified electronically.
[2017-07-20 06:28] VITALS: RESP 20
[2017-07-20 06:32] VITALS: BP 167/84; PULSE 68; RESP 20; TEMP 98; O2SAT 98
[2017-07-20 06:44] LABS: BICARBONATE 16.2 MEQ/L (21.0-32.0); BLOOD UREA NITROGEN 15 MG/DL (7-18); CALCIUM 7.1 MG/DL (8.5-10.1); CHLORIDE 81 MEQ/L (98-107); CREATININE 0.76 MG/DL (0.60-1.30); GLOMERULAR FILTRATION RATE 130 ML/MIN (>89); GLUCOSE,RANDOM 65 MG/DL (74-106); MAGNESIUM 2.5 MG/DL (1.5-2.5); SODIUM (NA) 148 MEQ/L (136-145)
[2017-07-20 06:56] LABS: TROPONIN I LESS THAN 0.02 NG/ML (0.02-0.05)
[2017-07-20 07:05] LABS: CALCIUM-PROTEIN CORRECTED 7.2 MG/DL (8.5-10.1)
[2017-07-20 07:30] VITALS: BP 142/72; PULSE 74; RESP 16; O2SAT 97
[2017-07-20 07:43] LABS: BICARBONATE 27.3 MEQ/L (21.0-32.0); CALCIUM 8.5 MG/DL (8.5-10.1); CREATININE 0.95 MG/DL (0.60-1.30)
[2017-07-20] MEDS ORDERED: LISI40TA PO (08:08)
--- NOTE | 2017-07-20 08:08 | PD ---
Physical Exam Narrative Patient was seen by ED physician and signed out to me. Data Data Last Documented VS Vital Signs Date Time Temp Pulse Resp B/P (MAP) Pulse Ox O2 Delivery O2 Flow Rate FiO2 07/20/17 06:32 98.0 68 20 167/84 (111) 98 Room Air Orders Orders Electrocardiogram (07/20/17 05:52) Basic Metabolic Panel (Bmp) (07/20/17 05:52) Complete Blood Count With Diff (07/20/17 05:52) Magnesium (Mg) (07/20/17 05:52) Troponin I (07/20/17 05:52) Chest, Single Ap (07/20/17 05:52) Ecg Monitoring (07/20/17 05:52) Iv Access Insert/Monitor (07/20/17 05:52) Oximetry (07/20/17 05:52) Sodium Chloride 0.9% Flush (Ns Flush) (07/20/17 06:00) Protein Corrected Calcium(Pcc) (07/20/17 06:00) Basic Metabolic Panel (Bmp) (07/20/17 07:05) Labs Laboratory Tests Test 07/20/17 06:00 07/20/17 07:12 White Blood Count 10.3 TH/MM3 Red Blood Count 4.82 MIL/MM3 Hemoglobin 13.4 GM/DL Hematocrit 40.2 % Mean Corpuscular Volume 83.4 FL Mean Corpuscular Hemoglobin 27.9 PG Mean Corpuscular Hemoglobin Concent 33.5 % Red Cell Distribution Width 13.6 % Platelet Count 261 TH/MM3 Mean Platelet Volume 7.7 FL Neutrophils (%) (Auto) 54.1 % Lymphocytes (%) (Auto) 35.2 % Monocytes (%) (Auto) 6.3 % Eosinophils (%) (Auto) 3.3 % Basophils (%) (Auto) 1.1 % Neutrophils # (Auto) 5.6 TH/MM3 Lymphocytes # (Auto) 3.6 TH/MM3 Monocytes # (Auto) 0.7 TH/MM3 Eosinophils # (Auto) 0.3 TH/MM3 Basophils # (Auto) 0.1 TH/MM3 CBC Comment DIFF FINAL Differential Comment Blood Urea Nitrogen 15 MG/DL 17 MG/DL Creatinine 0.76 MG/DL 0.95 MG/DL Random Glucose 65 MG/DL 92 MG/DL Total Protein 7.0 GM/DL Calcium Level 7.1 MG/DL 8.5 MG/DL Magnesium Level 2.5 MG/DL Sodium Level 148 MEQ/L 139 MEQ/L Potassium Level 3.2 MEQ/L 4.0 MEQ/L Chloride Level 81 MEQ/L 106 MEQ/L Carbon Dioxide Level 16.2 MEQ/L 27.3 MEQ/L Anion Gap 51 MEQ/L 6 MEQ/L Estimat Glomerular Filtration Rate 130 ML/MIN 101 ML/MIN Protein Corrected Calcium 7.2 MG/DL Troponin I LESS THAN 0.02 NG/ML MDM Supervised Visit with VEE: No Interpretation(s) 8:06 AM. Repeat BMP normal. Diagnosis Primary Impression: Uncontrolled hypertension Patient Instructions: General Instructions Additional Instruction: Take medication as directed. Continue monitoring blood pressure. Follow-up with personal physician. Return if worse. Med/Other Pt SpecificInfo: Prescription(s) given Scripts Lisinopril (Lisinopril) 40 Mg Tab 40 MG PO DAILY for Blood Pressure Management, #30 TAB 2 Refills Prov: Len Nagy MD 07/20/17 Disposition: 01 DISCHARGE HOME Condition: Stable Len Nagy MD Jul 20, 2017 08:08
[2017-07-20 08:30] VITALS: BP 147/82
--- NOTE | 2017-07-20 22:02 | EKG ---
Date Performed: 07/20/2017 Time Performed: 06:24:15 PTAGE: 52 years EKG: Sinus rhythm NORMAL ECG PREVIOUS TRACING : 02/10/2017 15.06 Since the prior tracing, there has been no significant velasquez alex DOCTOR: Gin Borrego Interpretating Date/Time 07/20/2017 22:01:42
== END 2017-07-20 08:30 | disposition home or self-care (01) ==
LOC: NEPC 03:40
DX: I10 Essential (primary) hypertension (principal); Z76.0 Encounter for issue of repeat prescription; Z91.14 Patient's other noncompliance with medication regimen; F12.90 Cannabis use, unspecified, uncomplicated
CPT/HCPCS: 71045; 80048; 83735; 84155; 84484; 85025; 93005; 99285